=== PATIENT | male | born 1955 | race Caucasian/White ===

== ENCOUNTER 2019-09-07 10:53 | Outpatient (CLI) | payer OTHER, SELFPAY ==
--- NOTE | ~2019-09-07 | XR_ITS ---
EXAMINATION: XR chest 2V 09/07/2019 11:09 INDICATION: Cough PROCEDURE: 2 view chest COMPARISON: No prior studies for comparison. FINDINGS: The lungs are clear. The cardiomediastinal silhouette is within normal limits. There are no pleural effusions. There is no pneumothorax suspected. IMPRESSION: 1: NO ACUTE CARDIOPULMONARY DISEASE. Reviewed, dictated and finalized at location A.
== END 2019-09-07 10:54 | disposition home or self-care (01) ==
LOC: ANHIMG 10:56
PROVIDERS: PCP Family Medicine; Visit Provider Family Medicine
DX: R05 Cough (principal)
CPT/HCPCS: 71046

== ENCOUNTER 2020-11-09 14:01 | Emergency (ER) | payer OTHER, SELFPAY ==
--- NOTE | ~2020-11-09 | XR_ITS ---
XR foot RT min 3V DATE: 11/09/2020 14:41 INDICATION: Dropped tool box on foot TECHNIQUE: 4 views COMPARISON: None FINDINGS: There is a transverse fracture of the proximal shaft of the first metatarsal bone with appr oximately one cortical width medial and 5 mm plantar displacement and approximately 17 degrees apex m edial angulation. There are transverse nondisplaced fractures of the midshaft of the second metatarsal bone and distal shaft of the third metatarsal bone. There is prominent soft tissue swelling of the dorsum of the foot. Plantar and posterior calcaneal enthesopathy and calcifications at the distal Achilles tendon. IMPRESSION: First through third metatarsal fractures; there is one cortical width medial and 5 mm kennedy ntar displacement at the first metatarsal shaft fracture and no displacement at the second and third metatarsal shaft fractures Reviewed, dictated and finalized at location A. IMPRESSION: First through third metatarsal fractures; there is one cortical wid th medial and 5 mm plantar displacement at the first metatarsal shaft fracture and no displacement at the second and third metatarsal shaft fractures
[2020-11-09 14:03] VITALS: BP 150/103; PULSE 82; RESP 16; O2SAT 92
--- NOTE | 2020-11-09 14:24 | ED.LOWEXIN ---
HPI - Extremity Injury (Lower) General Chief Complaint: Extremity Injury, Lower Stated Complaint: R FOOT INJURY Time Seen by Provider: 11/09/20 14:13 History of Present Illness HPI Narrative: 64 yo male presents to the ED or a foot injury. He was attempting to lift a fully loaded tool box out of the bed of a pick-up truck and it fell onto his right foot. He had severe pain in the foot initially. The pain is now mild at rest. He is not able to bear weight. He has significant swelling to the foot. Unsure of tetanus status. No numbness. Related Data Allergies Allergy/AdvReac Type Severity Reaction Status Date / Time No Known Allergies Allergy Unknown Verified 09/29/20 13:39 Review of Systems Review of Systems: All systems reviewed & are unremarkable except as noted in HPI and below Constitutional: Constitutional: Denies chills and Denies fever(s) Cardiovascular: Cardiovascular: Denies chest pain Respiratory: Respiratory: Denies dyspnea Gastrointestinal: Gastrointestinal: Denies nausea Musculoskeletal: Musculoskeletal: Denies back pain Neurologic: Denies confusion, Denies syncope, Denies numbness and Denies weakness [facility] Family History Family History Father Hypertension Family history of thoracic aortic aneurysm Sibling Family history of Alzheimer's disease Malignant neoplasm of prostate Mother Family history of coronary artery disease Social History Social History Alcohol intake: never Exam Const: General: healthy appearing, no acute distress and alert Orientation/consciousness: patient oriented x3 HENMT: Head: normal to inspection Resp: Effort & Inspection: normal respiratory effort Auscultation: clear to auscultation bilaterally Cardio: Rate: regular rate Rhythm: regular rhythm Skin: Other: small abrasion to the dorsum of the right foot. Neuro: General: patient oriented x3, moves all extremities and CN's II-XI intact bilaterally Speech: normal speech Other: wiggles toes. Sensation intact distally Extrem: Other: Swelling and tenderness to the dorsum of the right foot Course Vital Signs Vital signs: Vital Signs Pulse Rate 82 11/09/20 14:03 Respiratory Rate 16 11/09/20 14:03 Blood Pressure 150/103 H 11/09/20 14:03 Pulse Oximetry 92 11/09/20 14:03 Pulse Rate 80 05/13/21 16:10 Respiratory Rate 16 11/09/20 14:03 Blood Pressure 125/78 11/09/20 16:10 Pulse Oximetry 92 11/09/20 14:03 MDM - Extremity Injury (Lower) MDM Narrative Medical decision making narrative: Patient discussed with Dr. Lagos. He recommends follow-up with a dispatch specialist. [facility] ortho contacted. They will see him in clinic next week. Patient provided with all information for scheduling the appointment Differential Diagnosis Differential diagnosis: Likely fracture of toe and ankle fracture Medical Records Attestation: I reviewed the patient's medical records. Imaging Data Radiologist's impression: ITS Impressions Foot X-Ray 11/09/20 14:47 IMPRESSION: First through third metatarsal fractures; there is one cortical width medial and 5 mm plantar displacement at the first metatarsal shaft fracture and no displacement at the second and third metatarsal shaft fractures Discharge Plan Discharge Clinical Impression: Metatarsal bone fracture Qualifiers: Encounter type: initial encounter Metatarsal bone: first Fracture type: closed Fracture alignment: displaced Laterality: right Qualified Code(s): S92.311A - Displaced fracture of first metatarsal bone, right foot, initial encounter for closed fracture Patient Disposition: Home, Self-Care Condition: Stable Instructions: Foot Fracture in Adults (ED) Additional Instructions: You can follow-up with the Foot and ankle clinic at [facility]. Call Tell them that you were advised to schedule an appoint
[2020-11-09] MEDS: HYDROcodone/acetaminophen (*CRX) 5-325 MG TABLET 2 TAB PO (15:32)
[2020-11-09 16:10] VITALS: BP 125/78; PULSE 80
== END 2020-11-09 16:10 | disposition home or self-care (01) ==
PROVIDERS: Emergency Provider Emergency Medicine; PCP Family Medicine
DX: S92.311A Displaced fracture of first metatarsal bone, right foot, initial encounter for closed fracture (principal); S92.324A Nondisplaced fracture of second metatarsal bone, right foot, initial encounter for closed fracture; S92.334A Nondisplaced fracture of third metatarsal bone, right foot, initial encounter for closed fracture; W20.8XXA Other cause of strike by thrown, projected or falling object, initial encounter
CPT/HCPCS: 29515; 73630; 99284; A9270

== ENCOUNTER 2020-11-16 10:06 | Outpatient (CLI) | payer OTHER, SELFPAY ==
--- NOTE | 2020-11-16 10:24 | ECG_ITS ---
Measurements Intervals [place] Rate: 66 P: 38 [place]: 148 QRS: 13 QRSD: 102 T: 31 QT: 381 QTc: 400 Interpretive Statements SINUS RHYTHM DELAYED PRECORDIAL R/S TRANSITION BASELINE ARTIFACT- I, III BORDERLINE ECG Electronically Signed On 11-16-2020 11:40:51 CDT by Denilson Brownlee D.O.
[2020-11-16 10:28] LABS: Hematocrit 45.8 % (42.0-52.0); Hemoglobin 15.3 g/dL (14.0-18.0); Mean Corpuscular HGB Conc 33.4 g/dl (32-36); Mean Corpuscular Hemoglobin 31.6 pg (26-34); Mean Corpuscular Volume 94.6 fl (80-100); Platelet Count Result 187 k/mm3 (150-375); Red Blood Count 4.84 M/mm3 (4.6-6.20); White Blood Count 8.1 K/mm3 (4.5-10.0)
[2020-11-16 10:41] LABS: Alanine Aminotransferase 32 U/L (4-50); Albumin Level 4.1 g/dL (3.5-5.1); Alkaline Phosphatase 89 U/L (38-126); Anion Gap 7 mmol/L (8-16); Aspartate Amino Transferase 37 U/L (17-59); Bilirubin,Total 0.6 mg/dL (0.2-1.3); Blood Urea Nitrogen 17 mg/dL (9-20); Calcium 9.2 mg/dL (8.4-10.2); Carbon Dioxide 27 mmol/L (22-30); Chloride 108 mmol/L (98-107); Estimated Glomerular Filt Rate 56; Glucose 142 mg/dL (75-110); Potassium 3.8 mmol/L (3.4-5.0); Sodium 142 mmol/L (137-145)
== END 2020-11-16 10:07 | disposition home or self-care (01) ==
LOC: ANHLAB 10:08
PROVIDERS: PCP Family Medicine; Visit Provider Family Medicine
DX: E11.9 Type 2 diabetes mellitus without complications (principal); E66.9 Obesity, unspecified; E78.2 Mixed hyperlipidemia; E88.81 Metabolic syndrome and other insulin resistance; I10 Essential (primary) hypertension; Z01.818 Encounter for other preprocedural examination; R94.31 Abnormal electrocardiogram [ECG] [EKG]
CPT/HCPCS: 36415; 80053; 85027; 93005

== ENCOUNTER 2020-11-28 08:25 | Outpatient (CLI) | payer MEDICARE, OTHER, SELFPAY ==
--- NOTE | ~2020-11-28 | NM_ITS ---
EXAMINATION: NM laith stress w perfusion DATE: 11/28/2020 13:22 INDICATION: Dyspnea on exertion. TECHNIQUE: Rest images were obtained following intravenous administration of 10.7 mCi Tc99m tetrofosm in (Myoview). The patient was infused intravenously with Lexiscan (regadenoson). Then, 20.1 mCi Tc99m tetrofosmin (Myoview) was administered intravenously, and stress images were obtained. Data was amber nstructed into short axis and horizontal and vertical long axis SPECT images. Gated SPECT images were also obtained. COMPARISON: None. FINDINGS: There is no definite reversible or fixed perfusion abnormality to suggest ischemia or infar ction. There is no segmental wall motion abnormality. Left ventricular ejection fraction measures > 70%. IMPRESSION: 1. No definite ischemia or infarct. 2. Normal left ventricular ejection fraction measuring >70%. Reviewed, dictated and finalized at location A.
--- NOTE | 2020-11-28 08:29 | EST_ITS ---
Patient Info Name: Enzo Rabago Age: 64 years : 1955 Gender: Male Ht: 74 in Wt: 315 lbs BSA: 2.79 m2 HR: 77 bpm BP: 130 / 85 mmHg Heart Rhythm: Sinus Rhythm Exam Date: 11/28/2020 11:18 AM Exam Location: [facility] Stress Patient Status: Outpatient Admit Date: 11/28/2020 Staff Ordering Physician: Denilson Brownlee DO Attending Provider: Denilson Brownlee DO Exercise Technologist: Jelena Cisneros RDCS Exercise Physician: Kareem Rodriguez MD Exam Type: CA stress laith w NM Study Info Indications R06.00 - Dyspnea, unspecified A regadenoson stress test was performed. Summary 1. 1. Baseline EKG showed normal sinus rhythm without significant ST-T abnormality. EKG portion of the pharmacological stress test negative for ischemia by EKG criteria. 2. Myocardial perfusion imaging is pending. Protocol: Lexiscan Stress ECG Details Stage: REST Duration (min): 0 min : 58 sec HR (bpm): 78 SBP (mmHg): 130 DBP (mmHg): 85 Stage: REST Duration (min): 12 min : 33 sec HR (bpm): 78 SBP (mmHg): 130 DBP (mmHg): 85 Stage: STAGE 1 Duration (min): 0 min : 59 sec HR (bpm): 93 SBP (mmHg): 140 DBP (mmHg): 94 Stage: RECOVERY Duration (min): 1 min : 0 sec HR (bpm): 88 SBP (mmHg): 144 DBP (mmHg): 90 Stage: RECOVERY Duration (min): 2 min : 0 sec HR (bpm): 89 SBP (mmHg): 144 DBP (mmHg): 90 Stage: RECOVERY Duration (min): 3 min : 0 sec HR (bpm): 90 SBP (mmHg): 130 DBP (mmHg): 86 Stage: RECOVERY Duration (min): 3 min : 5 sec HR (bpm): 93 SBP (mmHg): 130 DBP (mmHg): 86 Rest HR: 78 bpm Peak HR: 98 bpm Rest Sys BP: 130 mmHg Peak Sys BP: 144 mmHg Max Pred HR: 156 bpm % Max Pred HR: 63 % Target HR: 133 bpm Max RPP: 14,112 bpm*mmHg Total Time: 1 min : 0 sec Rest Chapman BP: 85 mmHg Peak Chapman BP: 90 mmHg Total Dose: 0.4 mg Report Signatures
== END 2020-11-28 08:26 | disposition home or self-care (01) ==
PROVIDERS: PCP Family Medicine; Visit Provider Internal Medicine Cardiovascular Disease
DX: R06.00 Dyspnea, unspecified (principal)
CPT/HCPCS: 78452; 93017; A9502; J2785

== ENCOUNTER 2020-11-29 11:44 | Outpatient (CLI) | payer MEDICARE, OTHER, SELFPAY ==
--- NOTE | ~2020-11-29 | XR_ITS ---
XR foot RT min 3V DATE: 11/29/2020 12:17 INDICATION: Fractured metatarsals TECHNIQUE: 4 views COMPARISON: 11/09/2020 right foot FINDINGS: There are fractures of the first through third metatarsal shafts. There is no significant change in position or alignment at the second metatarsal bone, but there is interval approximately 50 % lateral displacement at the distal third metatarsal shaft fracture and minimal increased anterior d isplacement at the first metatarsal fracture since 11/09/2020. There is limited if any new bone formation at the fracture sites. There is prominent soft tissue swelling of the forefoot. There is plantar calcaneal enthesopathy. There is prominent distal Achilles tendon calcification. No fracture or dislocation, periosteal reaction or bone destruction. IMPRESSION: Interval 50% lateral displacement of third metatarsal fracture and minimal increased plan tar displacement at first metatarsal fracture Reviewed, dictated and finalized at location A. IMPRESSION: Interval 50% lateral displacement of third metatarsal fracture and minimal increased plantar displacement at first metatarsal fracture
== END 2020-11-29 11:45 | disposition home or self-care (01) ==
LOC: ANHIMG 11:55
PROVIDERS: PCP Family Medicine; Visit Provider Podiatrist Foot & Ankle Surgery
DX: S92.301D Fracture of unspecified metatarsal bone(s), right foot, subsequent encounter for fracture with routine healing (principal); X58.XXXD Exposure to other specified factors, subsequent encounter
CPT/HCPCS: 73630

== ENCOUNTER 2020-12-14 10:48 | Outpatient (CLI) | payer MEDICARE, OTHER, SELFPAY ==
--- NOTE | ~2020-12-14 | XR_ITS ---
XR foot RT min 3V DATE: 12/14/2020 11:29 INDICATION: Metatarsal fractures; 2 weeks postoperative TECHNIQUE: 4 views COMPARISON: 11/29/2020 right foot FINDINGS: Plate and screws along the (1) first metatarsal bone providing near-anatomic position and a lignment at the transverse fracture of the proximal shaft and along (2) the mid to distal shaft of th e third metatarsal bone providing near-anatomic position and alignment at the distal third metatarsal shaft fracture. Nondisplaced transverse fracture of the second metatarsal bone. Plantar and posterior calcaneal enthesopathy. Posterior splint. IMPRESSION: Status post ORIF first and third metatarsal shaft fractures Reviewed, dictated and finalized at location A.
== END 2020-12-14 10:49 | disposition home or self-care (01) ==
PROVIDERS: PCP Family Medicine; Visit Provider Podiatrist Foot & Ankle Surgery
DX: S92.301A Fracture of unspecified metatarsal bone(s), right foot, initial encounter for closed fracture (principal); X58.XXXA Exposure to other specified factors, initial encounter
CPT/HCPCS: 73630

== ENCOUNTER 2020-12-22 10:32 | Outpatient (CLI) | payer MEDICARE, OTHER, SELFPAY ==
--- NOTE | ~2020-12-22 | XR_ITS ---
EXAMINATION: XR foot RT min 3V DATE: 12/22/2020 11:01 INDICATION: Right foot fracture follow-up TECHNIQUE: Dorsoplantar, lateral, and 2 oblique views of the right foot were obtained. COMPARISON: 12/14/2020 FINDINGS: Again seen is plate and screw fixation of a comminuted first metatarsal fracture. Bone alig nment remains near-anatomic. No significant calcified callus has developed. There is plate and screw fixation spanning a transverse fracture of the third distal metatarsal shaft. A small amount of calci fied callus is present. There is a transverse mid shaft fracture of the second metatarsal in anatomic alignment. No additional acute osseous findings are evident. A posterior splint is again noted. Ther e is dorsal soft tissue swelling of the foot. IMPRESSION: 1. Internally stabilized first and third metatarsal fractures and second metatarsal fracture without significant change. Reviewed, dictated and finalized at location A. IMPRESSION: 1. Internally stabilized first and third metatarsal fractures and second metata rsal fracture without significant change.
== END 2020-12-22 10:33 | disposition home or self-care (01) ==
LOC: ANHIMG 10:45
PROVIDERS: PCP Family Medicine; Visit Provider Podiatrist Foot & Ankle Surgery
DX: S92.901A Unspecified fracture of right foot, initial encounter for closed fracture (principal); X58.XXXA Exposure to other specified factors, initial encounter
CPT/HCPCS: 73630

== ENCOUNTER 2021-01-05 10:20 | Outpatient (CLI) | payer MEDICARE, OTHER, SELFPAY ==
--- NOTE | ~2021-01-05 | XR_ITS ---
XR foot RT min 3V DATE: 01/05/2021 11:02 INDICATION: Metatarsal fractures TECHNIQUE: 3 views with weightbearing COMPARISON: 12/02/2020 right foot FINDINGS: Plates and screws are noted along the shaft of the first and third metatarsal bone without interval change in position or alignment at these fracture sites or at the nondisplaced fracture of m idshaft of the second metatarsal bone. Posterior lower leg and plantar splint. IMPRESSION: Little interval change since 12/22/2020 Reviewed, dictated and finalized at location A.
== END 2021-01-05 10:21 | disposition home or self-care (01) ==
LOC: ANHIMG 10:32
PROVIDERS: PCP Family Medicine; Visit Provider Podiatrist Foot & Ankle Surgery
DX: S92.301A Fracture of unspecified metatarsal bone(s), right foot, initial encounter for closed fracture (principal); X58.XXXA Exposure to other specified factors, initial encounter
CPT/HCPCS: 73630

== ENCOUNTER 2021-01-19 10:52 | Outpatient (CLI) | payer MEDICARE, OTHER, SELFPAY ==
--- NOTE | ~2021-01-19 | XR_ITS ---
XR foot RT min 3V DATE: 01/19/2021 11:15 INDICATION: Metatarsal fractures TECHNIQUE: 3 views COMPARISON: right foot FINDINGS: Plates and screws are again noted along fractures of the proximal shaft of the first metata rsal bone and distal shaft of third metatarsal bone, without interval change in position or alignment since 01/25/2021. There is callus formation identified at the first metatarsal fracture. Transverse nondisplaced fracture of the midshaft of the second metatarsal bone. Plantar calcaneal enthesopathy, distal Achilles tendon prominent calcification. IMPRESSION: Internally fixated fractures of the first and third metatarsal shaft callus formation meeta ntified at the first metatarsal fracture. No interval change in position or alignment Nondisplaced transverse fracture of the midshaft of the second metatarsal bone Reviewed, dictated and finalized at location A. IMPRESSION: Internally fixated fractures of the first and third metatarsal shaf t callus formation identified at the first metatarsal fracture. No interval suad nge in position or alignment Nondisplaced transverse fracture of the midshaft of the second metatarsal bone
== END 2021-01-19 10:53 | disposition home or self-care (01) ==
LOC: ANHIMG 10:57
PROVIDERS: PCP Family Medicine; Visit Provider Podiatrist Foot & Ankle Surgery
DX: S92.324A Nondisplaced fracture of second metatarsal bone, right foot, initial encounter for closed fracture (principal); X58.XXXA Exposure to other specified factors, initial encounter
CPT/HCPCS: 73630

== ENCOUNTER 2021-02-02 10:47 | Outpatient (CLI) | payer MEDICARE, OTHER, SELFPAY ==
--- NOTE | ~2021-02-02 | XR_ITS ---
XR foot RT min 3V DATE: 02/02/2021 11:11 INDICATION: Metatarsal fractures TECHNIQUE: 3 views COMPARISON: 01/19/2021 right foot FINDINGS: Plates and screws are again noted at the fractures of the first and third metatarsal shafts , without interval change in position or alignment. Callus formation is noted at the first metatarsal fracture. Again noted is a lucent transverse fracture line at the second metatarsal mid shaft, with evidence of slight stable new bone formation, not significantly changed since 01/19/2021. Plantar and prominent posterior calcaneal enthesopathy and some calcifications at the distal Achilles tendon. IMPRESSION: No significant change since 01/19/2021 Reviewed, dictated and finalized at location B.
== END 2021-02-02 10:48 | disposition home or self-care (01) ==
LOC: ANHIMG 10:53
PROVIDERS: PCP Family Medicine; Visit Provider Podiatrist Foot & Ankle Surgery
DX: S92.301A Fracture of unspecified metatarsal bone(s), right foot, initial encounter for closed fracture (principal)
CPT/HCPCS: 73630

== ENCOUNTER 2021-03-09 10:52 | Outpatient (CLI) | payer MEDICARE, OTHER, SELFPAY ==
--- NOTE | ~2021-03-09 | XR_ITS ---
EXAMINATION: XR foot RT min 3V EXAM DATE: 03/09/2021 11:28 INDICATION: Metatarsal fracture. TECHNIQUE: Right foot dorsoplantar, lateral and oblique projections obtained and reviewed. Compariso n is made to prior examination from 03/09/2021. FINDINGS: There is subcutaneous transverse fracture through the midshaft of the right 2nd metatarsal bone, interval development of sclerosis at the fracture site, indistinct fracture margin. This is ree dence of healing. Still incomplete bone bridging. Surgically fixed 1st and 3rd metatarsal fractures, position and appearance unchanged. Moderate-sized posterior, small inferior calcaneal spurs. IMPRESSION: 1. Subacute right 2nd metatarsal shaft fracture. 2. Surgically fixed 1st, 3rd metatarsal fractures. Reviewed, dictated and finalized at location A.
== END 2021-03-09 10:53 | disposition home or self-care (01) ==
PROVIDERS: PCP Family Medicine; Visit Provider Podiatrist Foot & Ankle Surgery
DX: S92.321A Displaced fracture of second metatarsal bone, right foot, initial encounter for closed fracture (principal)
CPT/HCPCS: 73630

== ENCOUNTER 2021-05-11 10:45 | Outpatient (CLI) | payer MEDICARE, OTHER, SELFPAY ==
--- NOTE | ~2021-05-11 | XR_ITS ---
EXAMINATION: XR foot RT min 3V DATE: 05/11/2021 11:08 INDICATION: History of metatarsal fracture TECHNIQUE: Dorsoplantar, lateral, and 2 oblique views of the right foot were obtained. COMPARISON: 03/09/2021 FINDINGS: A previously described transverse fracture in the mid shaft of the second metatarsal is alfreda rly completely healed. No acute fracture is identified. There are internally stabilized old healed fr actures of the first and third metatarsals. There is mild osteoarthritis at the first metatarsophalan geal joint as well as several interphalangeal joints. There is dorsal soft tissue swelling of the aury t. Posterior and plantar calcaneal enthesophytes are noted. IMPRESSION: 1. Transverse shaft fracture of the second metatarsal, nearly completely healed. Reviewed, dictated and finalized at location B. STHETIC TECHNICIAN
== END 2021-05-11 10:46 | disposition home or self-care (01) ==
LOC: ANHIMG 10:51
PROVIDERS: PCP Family Medicine; Visit Provider Podiatrist Foot & Ankle Surgery
DX: S92.301A Fracture of unspecified metatarsal bone(s), right foot, initial encounter for closed fracture (principal); X58.XXXA Exposure to other specified factors, initial encounter
CPT/HCPCS: 73630

== ENCOUNTER 2021-06-18 00:59 | Day surgery (SDC) | payer MEDICARE, OTHER, SELFPAY ==
[2021-06-06 13:50] VITALS: BMI 41.1
--- NOTE | 2021-06-18 08:12 | P.PNAN_ITS ---
Anes - Initial Pre Proc Eval Procedure: Operation Date: 06/18/21 11:00 Proposed Procedures p Screening Colonoscopy - Robert Segundo MD Date/Time: 06/18/21 08:12 Surgeon: Robert Segundo MD Pre Op Diagnosis: neoplasm screening Patient Data Age: 65 Gender: M Height: 1.88 m Weight: 145.4 kg Allergies Allergy/AdvReac Type Severity Reaction Status Date / Time No Known Allergies Allergy Unknown Verified 06/18/21 09:42 Home Medications Medication Instructions Recorded Confirmed Type aspirin 81 mg chewable tablet 81 mg PO HS 05/03/21 06/18/21 History atorvastatin 10 mg PO HS 06/06/21 06/18/21 History telmisartan 40 mg PO HS 06/06/21 06/18/21 History Patient hx anesthesia problems: none Family hx anesthesia problems: none Results Review: All pre-operative results and documents have been reviewed as part of the pre-operative evaluation. [facility] Past Medical History Medical History (Updated 06/18/21 @ 09:58 by Robert Segundo MD) Broken foot (~11/09/20) Essential (primary) hypertension Mixed hyperlipidemia CODY (obstructive sleep apnea) bipap Type 2 diabetes mellitus without complications Surgical History Surgical History H/O foot surgery Right Family History Family History Father Hypertension Family history of thoracic aortic aneurysm Sibling Family history of Alzheimer's disease Malignant neoplasm of prostate Mother Family history of coronary artery disease Social History Social History Smoking status: Never smoker Alcohol intake: never Substance use: never Substance use type: does not use Living arrangements: with family Spiritual care concerns: No Anes - Eval Final PreProcedure Day of Procedure 06/18/21 08:12 Patient weight: morbidly obese Heart: regular rate and rhythm Lungs: clear to auscultation and normal air movement Airway: Mallampati scale class II Neurological: alert and oriented Last oral intake: >/= 8 hours ASA classification: III Emergent: no Anesthetic plan: proceed Anesthesia type and monitoring: general GIVS and standard monitoring Results Review: All pre-operative results and documents have been reviewed as part of the pre-operative evaluation. Informed Consent: The patient's anesthetic plan and its attendant risks and benefits were discussed with the patient/family/POA. Questions were solicited and answers provided to the satisfaction of the patient/family/POA.
[2021-06-18 09:43] VITALS: BP 154/81; PULSE 101; RESP 18; TEMP 36.1; O2SAT 97; BMI 43.2
--- NOTE | 2021-06-18 09:57 | P.CONGI_ITS ---
Assessment and Plan Assessment and plan (1) Encounter for screening colonoscopy: Code(s): Z12.11 - Encounter for screening for malignant neoplasm of colon Status: Acute Assessment and Plan: Patient presents for screening colonoscopy. His brother appears to have had colon polyps. Plan to proceed with colonoscopy further recommendations will be given after endoscopy. GI Consult Note Consult date/time: 06/18/21 09:57 HPI: Enzo Rabago is a 65 year old male Presents for screening colonoscopy. Patient reports that his current weight appetite bowel movements normal. Patient denies any blood in his stools. He has no abdominal pain. Is been 10 years since last colonoscopy. Family history is significant that his brother may have had colon polyps. Review of Systems Review of Systems: All systems reviewed & are unremarkable except as noted in HPI and below [facility] Past Medical History Medical History (Updated 06/18/21 @ 09:58 by Robert Segundo MD) Broken foot (~11/09/20) Essential (primary) hypertension Mixed hyperlipidemia CODY (obstructive sleep apnea) bipap Type 2 diabetes mellitus without complications Surgical History Surgical History H/O foot surgery Right Family History Family History Father Hypertension Family history of thoracic aortic aneurysm Sibling Family history of Alzheimer's disease Malignant neoplasm of prostate Mother Family history of coronary artery disease Social History Social History Smoking status: Never smoker Alcohol intake: never Substance use: never Substance use type: does not use Living arrangements: with family Spiritual care concerns: No Meds Home Medications and Allergies Home Medications Medication Instructions Recorded Confirmed Type aspirin 81 mg chewable tablet 81 mg PO HS 05/03/21 06/18/21 History atorvastatin 10 mg PO HS 06/06/21 06/18/21 History telmisartan 40 mg PO HS 06/06/21 06/18/21 History Allergies Allergy/AdvReac Type Severity Reaction Status Date / Time No Known Allergies Allergy Unknown Verified 06/18/21 09:42 Vital Signs Vital Signs - 24 hr 06/18/21 09:43 Temperature 97 F L Pulse Rate 101 H Respiratory Rate 18 Blood Pressure 154/81 H Pulse Oximetry 97 Exam Narrative: Physical exam reveals patient to be alert. Vital signs stable. HEENT exam is unremarkable. Patient is anicteric. Lungs are clear to auscultation and percussion. Heart is without murmur or extra sounds. Abdom inal exam bowel sounds are present soft nontender with no organomegaly. Digital external rectal exam is normal.
[2021-06-18] MEDS: LACTATED RINGERS 1,000 ML 150 ML IV CONT (10:04)
--- NOTE | 2021-06-18 10:33 | SUR.PHASEII ---
IV fluids documented in error.
[2021-06-18 10:47] VITALS: BP 104/71; PULSE 76; RESP 14; O2SAT 96
[2021-06-18 10:57] VITALS: BP 115/78; PULSE 76; RESP 16; O2SAT 97
[2021-06-18 11:07] VITALS: BP 122/79; PULSE 70; RESP 20; O2SAT 95
== END 2021-06-18 11:22 | disposition home or self-care (01) ==
PROVIDERS: PCP Family Medicine; Visit Provider Internal Medicine Gastroenterology
PROC: 0DJD8ZZ Inspection of Lower Intestinal Tract, Via Natural or Artificial Opening Endoscopic (ICD-10-PCS; CPT 45378; principal; 2021-06-18 11:00)
DX: Z12.11 Encounter for screening for malignant neoplasm of colon (principal); D12.2 Benign neoplasm of ascending colon; D12.4 Benign neoplasm of descending colon; D12.3 Benign neoplasm of transverse colon; K64.8 Other hemorrhoids; I10 Essential (primary) hypertension; E78.2 Mixed hyperlipidemia; E11.9 Type 2 diabetes mellitus without complications; G47.33 Obstructive sleep apnea (adult) (pediatric)
CPT/HCPCS: 45385; 88305; J2704; J7120

== ENCOUNTER 2021-08-23 11:57 | Outpatient (CLI) | payer MEDICARE, OTHER, SELFPAY ==
--- NOTE | ~2021-08-23 | CT_ITS ---
EXAMINATION: CT chest abdomen w con DATE: 08/23/2021 12:26 INDICATION: Unspecified abdominal pain TECHNIQUE: Computed tomography (CT) of the chest and abdomen was performed with 100 mL Omnipaque-350 intravenous contrast. Automated exposure control and iterative reconstruction technique were employed . The dose-length product was 1535.97 mGy-cm. COMPARISON: None FINDINGS: Chest: Multiple scattered small calcified pulmonary nodules consistent with old granulomatous disease. Linea r band of discoid atelectasis/scarring in the anterobasilar right lower lobe. 3 mm thin lenticular no dule in the right lower lobe along the major fissure, likely a kristyn fissural lymph node. No pneumonia , pulmonary edema, pleural effusion or pneumothorax. Heart size is normal. Atherosclerotic coronary a rtery calcific location. No pericardial effusion. Ectatic extending thoracic aorta which measures up to 3.8 cm in maximal diameter. No pathologically enlarged thoracic lymphadenopathy. 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 Moderate left and moderate to severe right glenohumeral osteoarthritis. Abdomen: Diffuse hepatic steatosis. There are scattered hepatic and splenic calcific lesions consistent with o ld granulomatous disease. Nonspecific 11 mm enhancing lesion at the posterior dome of the right hepat ic lobe. There are couple calcified gallstones at the neck of the normal-appearing gallbladder. No in tra or extrahepatic biliary ductal dilation. Couple right renal cysts the larger measuring 6.1 cm and the smaller a 12 mm exophytic cyst at the upper pole. 8 mm low-attenuation likely cyst at the lower pole of the left kidney which is too small to definitively characterize. Pancreas and bilateral adren al glands are normal. Visualized portion of the bowels are unremarkable including a normal appendix. Very small collection of nonloculated free fluid along the mesentery in the right lower quadrant. A c ouple calcified periportal and portacaval lymph nodes consistent with old granulomatous disease. No p athologically enlarged abdominal lymphadenopathy. IMPRESSION: 1. Mild discoid atelectasis in the right lower lobe. No acute cardiopulmonary disease. 2. Cholelithiasis. 3. Nonspecific minimal nonloculated free fluid along the mesentery of the right lower quadrant which is of indeterminate etiology. No other acute intra-abdominal process identified including a normal ap pendix. Reviewed, dictated and finalized at location A. CAL BILLING SUPERVISOR IMPRESSION: 1. Mild discoid atelectasis in the right lower lobe. No acute cardiopulmonary d isease. 2. Cholelithiasis. 3. Nonspecific minimal nonloculated free fluid along the mesentery of the right lower quadrant which is of indeterminate etiology. No other acute intra-abdomi nal process identified including a normal appendix.
[2021-08-23 12:21] LABS: Estimated Glomerular Filt Rate > 60
== END 2021-08-23 11:58 | disposition home or self-care (01) ==
LOC: ANHIMG 12:01
PROVIDERS: PCP Family Medicine; Visit Provider Family Medicine
DX: R10.9 Unspecified abdominal pain (principal); R05.9 Cough, unspecified; K80.20 Calculus of gallbladder without cholecystitis without obstruction
CPT/HCPCS: 71260; 74160; Q9967

== ENCOUNTER 2021-09-27 12:07 | Outpatient (CLI) | payer MEDICARE, OTHER, SELFPAY ==
[2021-09-27 12:40] LABS: Amylase 64 U/L (30-110); Lipase 64 U/L (23-300)
== END 2021-09-27 12:08 | disposition home or self-care (01) ==
LOC: ANHSURGERY 12:12
PROVIDERS: PCP Family Medicine; Visit Provider Surgery
DX: K80.20 Calculus of gallbladder without cholecystitis without obstruction (principal); Z01.818 Encounter for other preprocedural examination
CPT/HCPCS: 36415; 82150; 83690; 86850; 86900; 86901

== ENCOUNTER 2021-10-03 00:43 | Day surgery (SDC) | payer MEDICARE, OTHER, SELFPAY ==
[2021-09-21 14:46] VITALS: BMI 42.3
--- NOTE | 2021-09-21 14:50 | PC.NURSE ---
Report to the Outpatient Waiting Room, entrance under the green pavilion located off [facility], at time _1100 on date __10/03/21 . OR Time: __1:00 PM . - You and your visitor will be asked a series of questions to screen for COVID 19 for your protection. - A mask is required within the hospital. Preoperative COVID Testing Requirements: No COVID Test needed if: (proof is required; if not received patient will have Rapid Test prior to entry) - Patient has received COVID Vaccine at least 14 days prior to procedure date or - Patient has positive COVID test result within last 90 days of surgery date. COVID Test needed if above criteria is not met If not COVID vaccinated a COVID test must be conducted within 72 hours of surgery and patient is asked to isolate self from time of testing until procedure. You will go to the [facility] for your COVID testing. The [employer] [facility] is located at the corner of [address] [facility]. You will only be called if COVID results are positive and your surgeon may reschedule your elective surgery date. Patients may have clear liquids (water, carbonated beverages, clear teas, apple juice) until 3 hours prior to surgery with a maximum of 20 ounces. - No food from midnight until time of surgery - Infants may have breast milk until 4 hours before surgery, infant formula 6 hours prior to surgery. - Children will be allowed to drink immediately following surgery. If applicable, please bring a bottle or sippy cup to assist with drinking. Juice, water, soda, and popsicles are readily available. For infants on formula, please bring formula the day of surgery. Pacifiers are allowed. Take the following medications with a SIP of water the morning of surgery: ___NONE Medications to discontinue per physician ___MULTI VITAMIN 3 DAYS PRE OP Date to take last dose__09/29/21 Please no make-up, nail slovenian, hairspray, perfume, deodorant, or body powder the day of surgery. No jewelry (including any body piercings) or valuables the day of surgery, leave them at home. Please take a shower or bath the night before, or the morning of, surgery with an antibacterial soap. Wear comfortable, loose fitting clothing. Children are encouraged to wear pajamas. - Jewelry must be removed prior to entering the operating room. Rings and piercings that are not removed may be cut off. - The hospital will not accept responsibility for valuables. HIBICLENS SHOWER MORNING OF SURGERY - Please leave all valuables, including medications, at home the day of surgery. If you are going home after surgery, a licensed driver's education instructor must drive you home. - NO public transportation without another adult. - We recommend that an adult stay with you for 24 hours following discharge. - We also recommend that you do not drive, make important decision, drink alcoholic beverages, or take any drugs that were not prescribed by your health care provider for at least 24 hours after your discharge time. For Pediatric surgeries, we recommend two adults accompany the child home (only one inside the building at this time). One visitor will be allowed to accompany the patient into the hospital. Patients visitor will be instructed to remain with patient at all times or leave the building. We will allow the visitor to come back to the postoperative area when patient is ready. Follow any additional instructions given to you from your surgeon. Telephone instructions given to __PATIENT and asked if any additional questions and then verbalized understanding. Patient advised to call surgeon office or pre surgery nurse liaison [phone] if any additional questions.
[2021-10-03] VITALS (9 sets, daily range): BP systolic 122–159; BP diastolic 62–79; PULSE 56–72; RESP 10–21; TEMP 36.2–36.3; O2SAT 90–97
[2021-10-03] MEDS: ACETAMINOPHEN 500 MG TABLET 1000 MG PO (11:02)
[2021-10-03] MEDS: LACTATED RINGERS 1,000 ML 30 ML IV CONT ×2 (11:18→15:22)
[2021-10-03] MEDS: KETOROLAC 15 MG/ML VIAL (*BKC) IV PUSH (11:19)
[2021-10-03 11:26] LABS: Glucose Point of Care 127 mg/dl (65-105)
--- NOTE | 2021-10-03 13:01 | WPDANESEPP ---
Anes - Eval Pre Procedure Procedure: Operation Date: 10/03/21 13:00 Proposed Procedures p Laparoscopic Cholecystectomy, Possible Open - Khanh Rodriguez DO Date/Time: 10/03/21 13:01 Pre Op Diagnosis: symptomatic cholelithiasis Patient Data Age: 65 Gender: M Height: 1.88 m Weight: 151.3 kg Last Vital Signs Temp 97.2 F L 10/03/21 10:57 Pulse 72 10/03/21 10:57 Resp 16 10/03/21 10:57 BP 122/69 10/03/21 10:57 Pulse Ox 95 10/03/21 10:57 Allergies Allergy/AdvReac Type Severity Reaction Status Date / Time No Known Allergies Allergy Unknown Verified 10/03/21 10:44 Home Medications Medication Instructions Recorded Confirmed Type aspirin 81 mg chewable tablet 81 mg PO HS 05/03/21 10/03/21 History atorvastatin 10 mg tablet 10 mg PO HS #90 tablet 07/09/21 10/03/21 Rx telmisartan 40 mg tablet 40 mg PO HS #90 tablet 08/03/21 10/03/21 Rx metformin 500 mg tablet,extended 1,000 mg PO BID #360 tablet 09/20/21 10/03/21 Rx release 24 hr tjlzdfvj-abu-lspzd-vit K-lycop 1 tablet PO HS 09/21/21 10/03/21 History [One-A-Day Men's 50 Plus] Laboratory Tests 10/03/21 11:21 POC Capillary Glucose 127 mg/dl H mg/dl (65-105) Patient hx anesthesia problems: none Family hx anesthesia problems: none Results Review: All pre-operative results and documents have been reviewed as part of the pre-operative evaluation. [facility] Past Medical History Medical History Broken foot (~11/09/20) Essential (primary) hypertension Mixed hyperlipidemia CODY (obstructive sleep apnea) bipap Type 2 diabetes mellitus without complications Surgical History Surgical History H/O foot surgery Right Family History Family History Father Hypertension Family history of thoracic aortic aneurysm Sibling Family history of Alzheimer's disease Malignant neoplasm of prostate Mother Family history of coronary artery disease Social History Social History Smoking status: Never smoker Alcohol intake: never Substance use: never Substance use type: does not use Living arrangements: with family Spiritual care concerns: No Exam Day of Procedure 10/03/21 13:01 Patient weight: morbidly obese (bmi 42.8)
--- NOTE | 2021-10-03 13:06 | SUR.PREOP ---
discussed delay with patient and . Voices understanding. No needs at present.
--- NOTE | 2021-10-03 13:07 | WPDANESEPPF ---
Anes - Initial Pre Proc Eval Procedure: Operation Date: 10/03/21 13:00 Proposed Procedures p Laparoscopic Cholecystectomy, Possible Open - Khanh Rodriguez DO Date/Time: 10/03/21 13:07 Surgeon: Khanh Rodrgiuez DO Pre Op Diagnosis: symptomatic cholelithiasis Patient Data Age: 65 Gender: M Height: 1.88 m Weight: 151.3 kg Last Vital Signs Temp 36.2 C L 10/03/21 10:57 Pulse 72 10/03/21 10:57 Resp 16 10/03/21 10:57 BP 122/69 10/03/21 10:57 Pulse Ox 95 10/03/21 10:57 Allergies Allergy/AdvReac Type Severity Reaction Status Date / Time No Known Allergies Allergy Unknown Verified 10/03/21 10:44 Home Medications Medication Instructions Recorded Confirmed Type aspirin 81 mg chewable tablet 81 mg PO HS 05/03/21 10/03/21 History atorvastatin 10 mg tablet 10 mg PO HS #90 tablet 07/09/21 10/03/21 Rx telmisartan 40 mg tablet 40 mg PO HS #90 tablet 08/03/21 10/03/21 Rx metformin 500 mg tablet,extended 1,000 mg PO BID #360 tablet 09/20/21 10/03/21 Rx release 24 hr rlhfqqwp-nfv-mmwrk-vit K-lycop 1 tablet PO HS 09/21/21 10/03/21 History [One-A-Day Men's 50 Plus] Laboratory Tests 10/03/21 11:21 POC Capillary Glucose 127 mg/dl H mg/dl (65-105) Patient hx anesthesia problems: none Family hx anesthesia problems: none Results Review: All pre-operative results and documents have been reviewed as part of the pre-operative evaluation. [facility] Past Medical History Medical History Broken foot (~11/09/20) Essential (primary) hypertension Mixed hyperlipidemia CODY (obstructive sleep apnea) bipap Type 2 diabetes mellitus without complications Surgical History Surgical History H/O foot surgery Right Family History Family History Father Hypertension Family history of thoracic aortic aneurysm Sibling Family history of Alzheimer's disease Malignant neoplasm of prostate Mother Family history of coronary artery disease Social History Social History Smoking status: Never smoker Alcohol intake: never Substance use: never Substance use type: does not use Living arrangements: with family Spiritual care concerns: No Anes - Eval Final PreProcedure Day of Procedure 10/03/21 13:07 Patient weight: morbidly obese Heart: regular rate and rhythm Lungs: clear to auscultation Airway: Mallampati scale class II Neurological: alert and oriented Last oral intake: >/= 8 hours ASA classification: III Emergent: no Anesthetic plan: proceed Anesthesia type and monitoring: general ETT and standard monitoring Results Review: All pre-operative results and documents have been reviewed as part of the pre-operative evaluation. Informed Consent: The patient's anesthetic plan and its attendant risks and benefits were discussed with the patient/family/POA. Questions were solicited and answers provided to the satisfaction of the patient/family/POA.
--- NOTE | 2021-10-03 13:21 | PM.IMHP ---
H&P: HPI History of Present Illness Date/Time: 10/03/21 13:21 Chief Complaint: Symptomatic cholelithiasis Narrative: This is a 65-year-old man who presents for laparoscopic cholecystectomy. He denies any changes since last seen in the office. Review of Systems Review of Systems: All systems reviewed & are unremarkable except as noted in HPI and below Constitutional: Constitutional: Denies chills, Denies fever(s), Denies headache(s) and Denies weight loss Eyes: Eyes: Denies change in vision ENT: Denies dizziness, Denies headache(s), Denies neck mass and Denies throat swelling Cardiovascular: Cardiovascular: Denies chest pain, Denies lightheadedness and Denies dyspnea Respiratory: Respiratory: Denies cough, Denies dyspnea and Denies wheezing Gastrointestinal: Gastrointestinal: Denies abdominal pain, Denies change in bowel habits, Denies nausea and Denies vomiting Genitourinary: Genitourinary: Denies hematuria and Denies dysuria Musculoskeletal: Musculoskeletal: Reports as per HPI Integumentary/Breasts: Skin/Breast: Reports as per HPI Neurologic: Denies dizziness and Denies headache(s) Allergic/Immunologic: Allergic/Immunologic: Denies throat swelling and Denies wheezing PMFSH Past Medical History Medical History Broken foot (~11/09/20) Essential (primary) hypertension Mixed hyperlipidemia CODY (obstructive sleep apnea) bipap Type 2 diabetes mellitus without complications Surgical History Surgical History H/O foot surgery Right Family History Family History Father Hypertension Family history of thoracic aortic aneurysm Sibling Family history of Alzheimer's disease Malignant neoplasm of prostate Mother Family history of coronary artery disease Social History Social History Smoking status: Never smoker Alcohol intake: never Substance use: never Substance use type: does not use Living arrangements: with family Spiritual care concerns: No Meds Home Medications and Allergies Home Medications Medication Instructions Recorded Confirmed Type aspirin 81 mg chewable tablet 81 mg PO HS 05/03/21 10/03/21 History atorvastatin 10 mg tablet 10 mg PO HS #90 tablet 07/09/21 10/03/21 Rx telmisartan 40 mg tablet 40 mg PO HS #90 tablet 08/03/21 10/03/21 Rx metformin 500 mg tablet,extended 1,000 mg PO BID #360 tablet 09/20/21 10/03/21 Rx release 24 hr wlbacqbb-cem-inubp-vit K-lycop 1 tablet PO HS 09/21/21 10/03/21 History [One-A-Day Men's 50 Plus] Allergies Allergy/AdvReac Type Severity Reaction Status Date / Time No Known Allergies Allergy Unknown Verified 10/03/21 10:44 Vital Signs Vital Signs - 24 hr 10/03/21 10:57 Temperature 36.2 C L Pulse Rate 72 Respiratory Rate 16 Blood Pressure 122/69 Pulse Oximetry 95 Exam Const: General: no acute distress and alert Orientation/consciousness: patient oriented x3 HENMT: Head: normocephalic and atraumatic Ears: hearing grossly normal bilaterally General nose exam: Normal nares present Mouth: Yes Normal oral and palatal mucosa present Eyes: Periorbital: periorbital findings normal Sclera: sclerae normal EOM: EOMs intact bilaterally Neck: Neck: normal visual inspection, no lymphadenopathy and trachea midline Chest: Chest palpation & inspection: normal inspection of the chest Resp: Effort & Inspection: normal respiratory effort Auscultation: clear to auscultation bilaterally Cardio: Jugular venous distension: no JVD Rate: regular rate Rhythm: regular rhythm Heart sounds: S1 normal heart sound present and S2 normal heart sound present Peripheral pulses: Peripheral pulses 2+ throughout GI: Inspection: normal to inspection GI Palp: Yes Soft to palpation, No Tenderness to palpation present (GI), No Guard
--- NOTE | 2021-10-03 13:22 | WPDHPUPDATE1 ---
History and Physical Update Update Date/Time: 10/03/21 13:22 History and Physical has been reviewed, including an updated exam of the patient. There are NO changes in the patient's condition. Risks, benefits, and alternatives have been discussed and questions answered. Patient agrees to proceed with procedure.
[2021-10-03] MEDS: ceFAZolin 3 GM/D5W 100 ML 100 ML IVPB (13:40)
--- NOTE | 2021-10-03 14:43 | W.PM.PROC2 ---
Procedure Note - Detailed Date of Procedure 10/03/21 Pre-op Diagnosis symptomatic cholelithiasis Post-op Diagnosis Same Procedure Performed Laparoscopic Cholecystectomy Surgeon Khanh Rodriguez, DO Anesthesia General and Local (0.5% bupivacaine) Indications This is a 65-year-old man who presented with intermittent right upper quadrant pain past 2 months. He was also having some episodes of nausea and vomiting associated with this. He saw his primary care physician and underwent a CT which showed evidence of cholelithiasis. Discussions were made with the patient about treatment options and decision was made to proceed with laparoscopic cholecystectomy, possible open. Findings Laparoscopic cholecystectomy was performed. The patient did have a few pericholecystic adhesions around the gallbladder. The gallbladder wall did not appear inflamed and the cystic duct appeared normal in size. There were gallstones within the gallbladder. The gallbladder was removed and sent to the lab for pathology. Description of Procedure Procedure as well as risks, benefits, and alternatives were discussed with patient. Written consent was obtained and placed in chart prior to procedure. The patient was brought back to surgical suite. Patient was placed in supine position on operating table. Time-out was done to confirm patient and procedure. Patient was then intubated by the anesthesia department. Abdomen was prepped and draped in sterile fashion using chlorhexidine prep. 0.5% bupivacaine with epinephrine was infiltrated at each site of incision. A 5 millimeter incision was made near the umbilicus, and a 5 millimeter Optiview trocar was advanced through the abdominal layers under direct visualization. Once inside the abdominal cavity, carbon dioxide was insufflated to create a pneumoperitoneum. The camera was inserted and the abdomen was inspected. No immediate abnormalities were identified. The patient was placed in reverse Trendelenburg position and rotated slightly to the left. An 11 millimeter incision was made in the subxiphoid region, and an 11 millimeter trocar was inserted under direct visualization. Two 5 millimeter incisions were made in the right upper quadrant, and two 5 millimeter trocars were inserted under direct visualization. The gallbladder was identified and grasped at the fundus and retracted superiorly. It was then grasped at the infundibulum retracted laterally. Careful dissection around the neck of the gallbladder was performed using blunt dissection with a [place] grasper and hook electrocautery. The cystic duct was identified, and a window was created behind it. The cystic artery was also identified and a window was created behind it. The critical view of safety was identified, visualizing the cystic duct running directly into the neck of the gallbladder, and the cystic artery running directly into the wall of the gallbladder. A 5 millimeter clip firer watertender was then used to place 2 clips proximally and 1 clip distally on both the cystic duct and cystic artery. They were then both transected using endoscopic scissors. Once safely away from the caitlin hepatitis, the gallbladder was dissected free from the liver bed using hook electrocautery. Hemostasis was achieved along the way. The gallbladder was removed completely and then removed through the subxiphoid port. The liver bed was then inspected. Hemostasis appeared adequate, and our clips appeared secure. The area was gently irrigated with sterile saline. No other abnormalities were seen. The patient was flattened out in bed, and 1 final inspection was made around the abdominal cavity. The subxiphoid port was removed, and a Meño Nicole cone was used to approximate the fascia with an 0-Vicryl simple interrupted suture. The remaining ports were then removed under direct visualization, the camera was removed, and the pneumoperitoneum was released. The skin of the incisions was approximated
[2021-10-03 14:59] LABS: Glucose Point of Care 140 mg/dl (65-105)
[2021-10-03] MEDS: ONDANSETRON INJ 4 MG/2 ML VIAL IV PUSH (15:21)
[2021-10-03] MEDS: FAMOTIDINE 20 MG/2 ML VIAL IV PUSH (15:38)
[2021-10-03] MEDS: diphenhydrAMINE HCl INJ 50 MG/ML VIAL 25 MG IV PUSH (15:39)
[2021-10-03] MEDS: oxyCODONE HCL (*CRX) 5 MG TAB IR PO (16:21)
== END 2021-10-03 17:12 | disposition home or self-care (01) ==
PROVIDERS: PCP Family Medicine; Visit Provider Surgery
PROC: 0FT44ZZ Resection of Gallbladder, Percutaneous Endoscopic Approach (ICD-10-PCS; CPT 47562; principal; 2021-10-03 13:00)
DX: K80.10 Calculus of gallbladder with chronic cholecystitis without obstruction (principal); E78.2 Mixed hyperlipidemia; E11.9 Type 2 diabetes mellitus without complications; G47.33 Obstructive sleep apnea (adult) (pediatric); I10 Essential (primary) hypertension; Z79.82 Long term (current) use of aspirin; Z79.84 Long term (current) use of oral hypoglycemic drugs; E66.01 Morbid (severe) obesity due to excess calories; Z68.41 Body mass index [BMI] 40.0-44.9, adult
CPT/HCPCS: 47562; 82948; 88304; A9270; J0330; J0690; J1100; J1200; J1885; J2250; J2405; J2704; J2710; J3010; J7120

== ENCOUNTER 2022-01-29 11:15 | Outpatient (CLI) | payer MEDICARE, OTHER, SELFPAY ==
--- NOTE | ~2022-01-29 | XR_ITS ---
EXAMINATION: XR shoulder RT min 2V DATE: 01/29/2022 11:37 INDICATION: Right shoulder pain. TECHNIQUE: 4 views of right shoulder were obtained. COMPARISON: None. FINDINGS: Bone alignment is normal. No fracture. There is severe osteoarthritis of glenohumeral joint and moderate osteoarthritis of acromioclavicular joint. IMPRESSION: 1. Polyarticular osteoarthritis. Reviewed, dictated and finalized at location A.
--- NOTE | ~2022-01-29 | XR_ITS ---
XR shoulder LT min 2V DATE: 01/29/2022 11:37 INDICATION: Bilateral shoulder pain and limited range of motion TECHNIQUE: 4 views COMPARISON: None FINDINGS: There is joint space narrowing and prominent spurring of the glenoid process and humeral he ad consistent with prominent left glenohumeral osteoarthritis. Normal alignment at the acromioclavicular and glenohumeral joints. No fracture, dislocation, perioste al reaction or bone destruction or abnormal left shoulder soft tissue calcification. There is degenerative disc disease throughout the included cervical spine from C3-4 through C6-7. Diffuse idiopathic skeletal hyperostosis of the thoracic spine. IMPRESSION: Prominent osteoarthritis at left glenohumeral joint Reviewed, dictated and finalized at location B.
== END 2022-01-29 11:16 | disposition home or self-care (01) ==
PROVIDERS: PCP Family Medicine; Visit Provider Family Medicine
DX: M19.011 Primary osteoarthritis, right shoulder (principal); M19.012 Primary osteoarthritis, left shoulder
CPT/HCPCS: 73030

== ENCOUNTER 2023-08-12 12:31 | Outpatient (CLI) | payer MEDICARE, SELFPAY ==
[2023-08-12 20:20] LABS: Influenza A QL RT-PCR Negative (Negative); Influenza B QL RT-PCR Negative (Negative); RSV RNA, RT-PCR Negative (Negative); SARS-CoV-2 RNA PCR Positive (Negative)
== END 2023-08-12 12:32 | disposition home or self-care (01) ==
LOC: ANHGOSHLAB 12:32
PROVIDERS: PCP Family Medicine; Visit Provider Nurse Practitioner
DX: R06.02 Shortness of breath (principal); R05.9 Cough, unspecified
CPT/HCPCS: 87637

== ENCOUNTER 2024-03-22 08:18 | Emergency (ER) | payer MEDICARE, SELFPAY ==
--- NOTE | ~2024-03-22 | CT_ITS ---
EXAMINATION: CT abdomen pelvis w con DATE: 03/22/2024 09:36 INDICATION: Abdominal pain. Nausea, vomiting, and diarrhea. TECHNIQUE: Computed tomography (CT) of the abdomen and pelvis was performed with 100 mL Omnipaque 350 intravenous contrast. Automated exposure control and iterative reconstruction technique were employe d. The dose-length product was 1855.21 mGy-cm. COMPARISON: CT chest and abdomen 08/23/2021 FINDINGS: The visualized portions of the lung bases demonstrate mild atelectasis. There are a few nod ules in the lungs measuring up to 3 mm, likely benign. Calcified pulmonary nodules are consistent wit h old granulomatous disease. No pleural effusion. The heart size is normal. There are coronary artery calcifications. No pericardial effusion. Calcifications in the liver and spleen are consistent with old granulomatous disease. There are changes of cholecystectomy. The pancreas and adrenal glands are normal. There are cysts in the kidneys measuring up to 7.4 cm on the right. There is diverticulosis o f the colon without evidence of diverticulitis. The appendix is normal. There are no dilated loops of bowel. Aortic atherosclerosis is noted. There are no pathologically enlarged lymph nodes. There is n o free intraperitoneal fluid. There are bridging endplate osteophytes at multiple levels in the spine , consistent with diffuse idiopathic skeletal hyperostosis (DISH). There is moderate lumbar spondylos is. IMPRESSION: 1. No etiology for the patient's symptoms. Reviewed, dictated and finalized at location A.
[2024-03-22 08:20] VITALS: BP 111/64; PULSE 116; RESP 20; O2SAT 99
[2024-03-22 08:49] LABS: Basophils Percent Auto 0.2 % (0.2-1.2); Eosinophils Absolute Auto 0.3 K/mm3 (0-0.3); Eosinophils Percent Auto 2.8 % (0-4.4); Hemoglobin 16.8 g/dL (14.0-18.0); Immature Granulocyte Absolute 0.05 K/mm3 (0.00-0.031); Immature Granulocyte Percent A 0.5 % (0-0.5); Lymphocytes Absolute Auto 1.24 K/mm3 (0.9-3.2); Lymphocytes Percent Auto 12.3 % (18.3-44.2); Mean Corpuscular HGB Conc 33.6 g/dl (32-36); Mean Corpuscular Hemoglobin 32.1 pg (26-34); Mean Corpuscular Volume 95.4 fl (80-100); Mean Platelet Volume 11.1 fl (7.4-10.4); Monocytes Absolute Auto 0.7 K/mm3 (0.1-0.6); Neutrophils Absolute Auto 7.8 K/mm3 (1.3-6.7); Neutrophils Percent Auto 77.2 % (45.5-73.1); Platelet Count Result 231 k/mm3 (150-375); Red Blood Count 5.24 M/mm3 (4.6-6.20); Red Cell Distribution Width 13.5 % (11.5-14.5); White Blood Count 10.1 K/mm3 (4.5-10.0)
[2024-03-22 08:59] LABS: Alanine Aminotransferase 32 U/L (6-50); Albumin Level 3.9 g/dL (3.5-5.1); Alkaline Phosphatase 124 U/L (38-126); Anion Gap 13 mmol/L (4-12); Aspartate Amino Transferase 25 U/L (17-59); Bilirubin,Total 0.6 mg/dL (0.2-1.3); Blood Urea Nitrogen 30 mg/dL (9-20); Calcium 8.8 mg/dL (8.4-10.2); Carbon Dioxide 18 mmol/L (22-30); Chloride 103 mmol/L (98-107); Estimated CRCL calculation 54 ml/min; Estimated Glomerular Filt Rate 40; Glucose 190 mg/dL (65-110); Lipase 42 U/L (23-300); Potassium 3.7 mmol/L (3.4-5.0); Sodium 134 mmol/L (137-145)
[2024-03-22 09:16] VITALS: BP 117/87; PULSE 95; RESP 17; O2SAT 99
--- NOTE | 2024-03-22 09:37 | ED.NAVMDI ---
HPI - Nausea/Vomiting/Diarrhea General Chief complaint: Nausea/Vomiting/Diarrhea Stated complaint: N/V/D Time Seen by Provider: 03/22/24 08:24 Source: patient Mode of arrival: ambulatory Limitations: no limitations History of Present Illness HPI Narrative: Patient is a 68-year-old male who presents the ED with report of nausea, vomiting, diarrhea. Patient reports symptoms have been ongoing since 02/09, but have become worse over the last few days. Reports profuse vomiting, difficulty keeping down food and drink. Has had decreased p.o. intake. Reports intermittent abdominal pain /cramping. Denies rectal bleeding or melena. Denies cough or cold symptoms, fevers. Denies family members with similar symptoms. Patient does report that he is on Mounjaro for diabetes and weight loss. He has been on this for 12 weeks and on his current dose for the last 2 months. Has never had issues with GI side effects. Related Data Home Medications Medication Instructions Recorded Confirmed aspirin 81 mg chewable tablet 81 mg PO HS 05/03/21 03/11/24 osgyvlxkkaqb-icv-jgals acid-vit 1 tablet PO HS 09/21/21 03/11/24 K-lycop 400 mcg-20 mcg-370 mcg tablet (One-A-Day Men's 50 Plus (with vitamin K)) Allergies Allergy/AdvReac Type Severity Reaction Status Date / Time No Known Allergies Allergy Unknown Verified 03/22/24 08:19 Review of Systems Review of Systems: All systems reviewed & are unremarkable except as noted in HPI. All systems reviewed & are unremarkable except as noted in HPI and below PMFSH Past Medical History Medical History Broken foot (~11/09/20) Essential (primary) hypertension Mixed hyperlipidemia CODY (obstructive sleep apnea) bipap Type 2 diabetes mellitus without complications Surgical History Surgical History H/O foot surgery Right Hx laparoscopic cholecystectomy 10/03/21 Family History Family History Father Hypertension Family history of thoracic aortic aneurysm Sibling Family history of Alzheimer's disease Malignant neoplasm of prostate Mother Family history of coronary artery disease Social History Social History Social History: Caffeine- diet soda Smoking status: Never smoker Alcohol intake: never Substance use: never Substance use type: does not use Lack of Transportation: No Lack of Food: Never True Current Housing: I Have Housing Concerned About Future Housing: No Difficulty Paying Gas/Electric Bills: No Difficulty Paying for Meds: No Currently Unemployed: No Education: High School Diploma/GED Difficulty w/ Childcare or Family Care: No Living arrangements: with family Spiritual care concerns: No Exam Narrative: GENERAL: Well appearing, obese with BMI of 36.6, non-toxic, in no acute distress. HEAD: Normocephalic, atraumatic. ENT: MMs dry. RESPIRATORY: Airway patent, respirations nonlabored. Clear to auscultation bilaterally, no rales, rhonchi, wheezing. CARDIOVASCULAR: Regular rate and rhythm without murmurs, rubs, or gallops. ABDOMINAL: Soft, no significant focal tenderness, nondistended. Normoactive BS. MUSCULOSKELETAL: Moves all extremities. No gross deformities. SKIN: Warm, dry, normal color. NEURO: A&O X3. Speech clear. PSYCHIATRIC: Appropriate mood and affect. Normal interaction. Course Vital Signs Vital signs: Vital Signs Pulse Rate 116 H 03/22/24 08:20 Respiratory Rate 20 03/22/24 08:20 Blood Pressure 111/64 03/22/24 08:20 Pulse Oximetry 99 03/22/24 08:20 Oxygen Delivery Room Air 03/22/24 08:20 Temperature 97.8 F 03/22/24 09:44 Pulse Rate 70 03/22/24 12:40 Respiratory Rate 16 03/22/24 12:40 Blood Pressure 110/61 03/22/24 12:40 Pulse Oximetr
[2024-03-22] MEDS: SODIUM CHLORIDE 0.9% IV 1,000 ML 999 ML IV CONT ×2 (09:42→09:43)
[2024-03-22] MEDS: ONDANSETRON INJ 4 MG/2 ML VIAL IV PUSH (09:42)
[2024-03-22 09:44] VITALS: TEMP 36.6
[2024-03-22 10:03] LABS: Lactic Acid Reflex 1.8 mmol/L (0.7-2.0)
[2024-03-22 10:12] LABS: Magnesium 1.2 mg/dL (1.6-2.3)
[2024-03-22 10:27] LABS: Influenza A QL RT-PCR Negative (Negative); Influenza B QL RT-PCR Negative (Negative); RSV RNA, RT-PCR Negative (Negative); SARS-CoV-2 RNA PCR Negative (Negative)
[2024-03-22] MEDS: MAGNESIUM SULF 2 GM/WATER 50ML 2 GM/50 ML BAG IVPB (10:37)
[2024-03-22 11:03] LABS: Add Urine Microscopic? YES; Appearance Urine Clear (Clear); Bacteria Urine None Seen /hpf; Bilirubin Urine Negative (Negative); Blood Urine Negative (Negative); Color Urine Yellow (Yellow); Glucose Urine UA Negative (Negative); Ketones Urine 1+ mg/dL (Negative); Leukocyte Esterase Ur Negative LEU/UL (Negative); Nitrate Urine Negative (Negative); Non Pathogenic Casts 0-2; Protein Urine Trace mg/dL (Negative); RBC Urine 0-2 /hpf (0-2); Specific Grav Ur > 1.045 (1.001-1.035); Squamous Epithelial Cell Urine None Seen /hpf (Few); Urobilinogen Urine 0.2 mg/dL (<2.0); WBC Urine 0-5 /hpf (0-3)
[2024-03-22 11:08] VITALS: BP 127/68; PULSE 79; RESP 18; O2SAT 95
[2024-03-22 12:40] VITALS: BP 110/61; PULSE 70; RESP 16; O2SAT 97
== END 2024-03-22 12:45 | disposition home or self-care (01) ==
PROVIDERS: Emergency Medicine; Emergency Provider Physician Assistant; PCP Family Medicine
DX: R11.2 Nausea with vomiting, unspecified (principal); E86.0 Dehydration; E83.42 Hypomagnesemia; Z79.85 Long-term (current) use of injectable non-insulin antidiabetic drugs; Z79.82 Long term (current) use of aspirin; Z79.84 Long term (current) use of oral hypoglycemic drugs; Z20.822 Contact with and (suspected) exposure to COVID-19
CPT/HCPCS: 36415; 74177; 80053; 81001; 83605; 83690; 83735; 85025; 87637; 96361; 96365; 96375; 99284; J2405; J3475; J7030; Q9967

== ENCOUNTER 2024-11-30 10:12 | Outpatient (CLI) | payer MEDICARE, SELFPAY ==
--- NOTE | ~2024-11-30 | US_ITS ---
US scrotum doppler INDICATION: Right lower quadrant pain TECHNIQUE: Testicular sonogram utilizing grayscale and color Doppler FINDINGS: The testes are normal in size and appearance. No focal lesions are seen. The right testes measures 4 x 2.6 x 2.2 cm centimeters, and the left testis measures 3.3 x 2.4 x 1.9 cm cm. There is n ormal vascular flow to both testes. The right and left epididymides appear normal. There is no varicocele or hydrocele. IMPRESSION: 1. NORMAL TESTICULAR ULTRASOUND. Reviewed, dictated and finalized at location A.
--- NOTE | ~2024-11-30 | US_ITS ---
US soft tissue groin RT Ordering provider: Lavonne Davis DO History: . R19.00 - Intra-abdominal and pelvic swelling, mass and aquilino... . Comparison: None. FINDINGS/impression: The area of concern is anterior to the vessels in the right groin which shows hypoechoic area measuri ng 3.3 x 0.1 x 1.1 cm. No movement with Valsalva is noted. Differential include lipoma versus omental tissue entrapment in the area. Clinical correlation and follow-up advised. Reviewed, dictated and finalized at location A.
== END 2024-11-30 10:13 | disposition home or self-care (01) ==
PROVIDERS: PCP Family Medicine; Visit Provider Family Medicine
DX: R10.31 Right lower quadrant pain (principal); N50.819 Testicular pain, unspecified; K40.90 Unilateral inguinal hernia, without obstruction or gangrene, not specified as recurrent; R19.09 Other intra-abdominal and pelvic swelling, mass and lump
CPT/HCPCS: 76870; 76882; 93976

== ENCOUNTER 2024-12-22 07:55 | Outpatient (CLI) | payer MEDICARE, SELFPAY ==
--- NOTE | ~2024-12-22 | CT_ITS ---
CT pelvis w con Ordering provider: Lavonne Davis DO History: . R93.89 - Abnormal findings on diagnostic imaging of other... . Comparison: None. Technique: CT pelvis without oral and IV contrast. . Automated exposure control and iterative recons truction technique were employed. The dose-length product was 1134.72 mGy-cm. Findings: BONES: No pelvic fracture or hip dislocation. Age appropriate degenerative changes of the visualized lower lumbar spine. Bilateral sacroiliacs. Bilateral hip moderate osteoarthritic changes. Hypodensity seen in the right iliac bone medially and posteriorly. Follow-up and clinical correlation advised. SUPERFICIAL SOFT TISSUES: Normal. No definite inguinal hernia seen bilaterally. PELVIC ORGANS: The bladder is normal. Right kidney cyst measuring 6.7 cm. Tiny cyst in the left kidney lower pole. VISUALIZED BOWEL AND MESENTERY: Normal. No free air or free fluid. No lymphadenopathy. RETROPERITONEUM: Mild atheromatous disease. IMPRESSION: No definite fractures seen. No definite inguinal hernias or masses seen in the anterior abdominal wall. Large right renal cyst. Reviewed, dictated and finalized at location A.
[2024-12-22 08:22] LABS: Estimated Glomerular Filt Rate 50
== END 2024-12-22 07:56 | disposition home or self-care (01) ==
PROVIDERS: PCP Family Medicine; Visit Provider Family Medicine
DX: R93.89 Abnormal findings on diagnostic imaging of other specified body structures (principal); R10.31 Right lower quadrant pain; N28.1 Cyst of kidney, acquired
CPT/HCPCS: 72193; Q9967

== ENCOUNTER 2025-05-03 14:18 | Outpatient (CLI) | payer MEDICARE, SELFPAY ==
--- NOTE | ~2025-05-03 | XR_ITS ---
EXAMINATION: XR hip RT 2V w AP pelvis, 05/03/2025 14:39 [employer] HISTORY: Pain in right hip, no inj, no surg, pain x 2 years COMPARISON: No comparisons available. Findings: No acute fracture or malalignment. No significant degenerative changes. Soft tissues unremarkable. Impression: No acute fracture or malalignment. Reviewed, dictated and finalized at location P. GRADER Impression: No acute fracture or malalignment.
== END 2025-05-03 14:19 | disposition home or self-care (01) ==
LOC: GOSHIMG 14:18
PROVIDERS: PCP Family Medicine; Visit Provider Family Medicine
DX: M25.551 Pain in right hip (principal); R10.31 Right lower quadrant pain
CPT/HCPCS: 73502